=== PATIENT | male | born 1975 | race Caucasian/White ===

== ENCOUNTER 2017-08-08 20:26 | Emergency (ER) | payer SELFPAY ==
[~2017-08-08] VITALS: Ht 182.9 cm; Wt 78.0 kg
[2017-08-08 21:57] VITALS: BP 131/80
== END 2017-08-08 21:59 | disposition home or self-care (01) ==
LOC: EME 20:26
DX: F43.21 Adjustment disorder with depressed mood (principal); F17.200 Nicotine dependence, unspecified, uncomplicated
CPT/HCPCS: 90837; 99281; 99283